=== PATIENT | male | born 1985 | race African-American/Black ===

== ENCOUNTER 2024-02-18 12:58 | Emergency (ER) | payer OTHER, SELFPAY ==
[2024-02-18 13:02] VITALS: BP 124/80; PULSE 84; RESP 18; TEMP 36.5; O2SAT 99; BMI 23.4
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
== END 2024-02-18 14:15 | disposition home or self-care (01) ==
PROVIDERS: Emergency Provider Emergency Medicine
DX: S39.012A Strain of muscle, fascia and tendon of lower back, initial encounter (principal)
CPT/HCPCS: 72131; 99283; 99284